=== PATIENT | male | born 1965 | race Caucasian/White ===

== ENCOUNTER 2019-09-08 21:13 | Emergency (ER) | payer BC ==
[~2019-09-08] VITALS: Ht 177.8 cm; Wt 96.3 kg
[2019-09-08] MEDS ORDERED: normal saline 1000ML IV soln IVB ONE (22:00)
[2019-09-08] MEDS ORDERED: morphine 4 MG/ML inj SYRINge IV PRN (22:00)
[2019-09-08] MEDS ORDERED: ondansetron/PF 4mg/2ml inj IV ONE (22:00)
[2019-09-08 22:03] LABS: BASOPHILS % (AUTO) 0.2 % (0-1); EOSINOPHILS # (AUTO) 0.2 X10'3 (0-0.9); EOSINOPHILS % (AUTO) 1.8 % (0-6); HEMATOCRIT 44.2 % (42.0-52.0); HEMOGLOBIN 14.6 g/dl (14.0-17.9); LYMPHOCYTES % (AUTO) 8.8 % (21-51); MEAN CORPUSCULAR HGB CONC 33.1 g/dL (33.0-36.5); MEAN CORPUSCULAR VOLUME 90.6 FL (78-98); MEAN PLATELET VOLUME 9.7 FL (7.4-10.4); MONOCYTES # (AUTO) 0.6 X10'3 (0-0.9); MONOCYTES % (AUTO) 5.3 % (2-12); NEUTROPHILS # (AUTO) 9.6 X10'3 (1.8-7.7); NEUTROPHILS % (AUTO) 83.9 % (42-75); PLATELET COUNT 213 X10'3 (140-440); RED BLOOD COUNT 4.88 X10'6 (4.70-6.10); RED CELL DISTRIBUTION WIDTH 13.2 % (11.5-14.5); WHITE BLOOD COUNT 11.4 X10'3 (4.5-11.0)
[2019-09-08 22:05] LABS: CLARITY,URINE SLIGHTLY CLOUDY (Clear); COLOR,URINE YELLOW (Yellow); GLUCOSE, URINE NEGATIVE (Neg); KETONES,URINE NEGATIVE (Neg); LEUKOCYTE ESTERASE ,URINE NEGATIVE (Neg); NITRITES, URINE NEGATIVE (Neg); OCCULT BLOOD,URINE NEGATIVE (Neg); PROTEIN,URINE TRACE mg/dl (Neg); UROBILINOGEN,URINE 0.2 E.U/dL (0.2-1.0)
[2019-09-08 22:10] LABS: UA COLLECTION TYPE CLN CATCH MIDSTREAM
[2019-09-08 22:11] LABS: MUCUS STRANDS MANY /LPF (Neg); SQUAMOUS EPITHELIAL CELL,UR FEW /LPF (FEW)
[2019-09-08 22:13] LABS: WBC,URINE 0-4 /HPF (0-4)
[2019-09-08 22:14] LABS: BACTERIA,URINE NONE SEEN /HPF (Neg); RBC,URINE 0-2 /HPF (0-2)
[2019-09-08 22:20] LABS: ALANINE AMINOTRANSFERASE 43 U/L (12-78); ALBUMIN 4.1 G/DL (3.4-5.0); ALKALINE PHOSPHATASE 80 IU/L (46-116); ANION GAP 8 (8-16); ASPARTATE AMINO TRANSFERASE 26 U/L (10-37); BILIRUBIN,TOTAL 0.4 MG/DL (0.1-1.0); BLOOD UREA NITROGEN 23 MG/DL (7-18); BUN/CREATININE RATIO 17.4 (5.4-32.0); CALCIUM 8.7 MG/DL (8.5-10.1); CHLORIDE 106 MMOL/L (99-107); CREATININE 1.32 MG/DL (0.60-1.10); ETHANOL < 0.010 GM/DL (0.0-0.010); GLUCOSE 116 MG/DL (70-104); LIPASE 99 U/L (73-393); POTASSIUM 3.7 MMOL/L (3.5-5.1); SODIUM 142 MMOL/L (135-145); TOTAL CARBON DIOXIDE 27.8 MMOL/L (24-32); TOTAL PROTEIN 8.2 G/DL (6.4-8.2); eGFR 56 ML/MIN
[2019-09-08] MEDS ORDERED: NO HOME MEDS (22:25)
[2019-09-08 23:24] LABS: TROPONIN I < 0.04 NG/ML (0.0-0.05)
[2019-09-08] MEDS ORDERED: PANT-47 PO (23:38)
[2019-09-08 23:51] VITALS: BP 146/80
== END 2019-09-08 23:54 | disposition home or self-care (01) ==
LOC: ER 21:13
DX: R10.13 Epigastric pain (principal); F10.99 Alcohol use, unspecified with unspecified alcohol-induced disorder; Y90.9 Presence of alcohol in blood, level not specified; Z79.899 Other long term (current) drug therapy
CPT/HCPCS: 36415; 76700; 80053; 80320; 81001; 83690; 84484; 85025; 93005; 96374; 96375; 99284; J2270; J2405; J7030

== ENCOUNTER 2021-06-30 07:30 | Outpatient (CLI) | payer BC ==
[2021-06-30] VITALS (18 sets, daily range): BP systolic 124–153; BP diastolic 54–105
[~2021-06-30 07:30] MED LIST: NO HOME MEDS; PANT-47 PO
== END 2021-06-30 23:59 | disposition home or self-care (01) ==
LOC: CARD DIAG 07:30
PROVIDERS: ATTEND Internal Medicine Interventional Cardiology
DX: R55 Syncope and collapse (principal)
CPT/HCPCS: 93660

== ENCOUNTER 2022-12-10 15:51 | Emergency (ER) | payer BC ==
[~2022-12-10] VITALS: Ht 177.8 cm; Wt 92.0 kg
[2022-12-10 16:08] VITALS: BP 151/94
[2022-12-10] MEDS ORDERED: IBUP-1986 PO (16:54)
[2022-12-10] MEDS ORDERED: CYCL-1 PO (16:54)
[2022-12-10] MEDS ORDERED: bacitracin 15gm ointment TP ONE (16:55)
[2022-12-10] MEDS ORDERED: TETanus/Pertussis (Acell)/Diphther VAC/PF (Tdap-Adult) 0.5ml syringe IMVAC ONE (16:55)
[2022-12-10] MEDS ORDERED: HYDROcodone/acetaminophen 5mg/325mg tablet PO ONE (17:15)
== END 2022-12-10 17:17 | disposition home or self-care (01) ==
LOC: ER 15:53
DX: S00.01XA Abrasion of scalp, initial encounter (principal); M54.2 Cervicalgia; R20.0 Anesthesia of skin; Z79.899 Other long term (current) drug therapy; V18.2XXA Unspecified pedal cyclist injured in noncollision transport accident in nontraffic accident, initial encounter; Y93.89 Activity, other specified; Y92.488 Other paved roadways as the place of occurrence of the external cause; Y99.8 Other external cause status
CPT/HCPCS: 70450; 72125; 90471; 90715; 99285